=== PATIENT | female | born 2005 | race Caucasian/White ===

== ENCOUNTER → 2024-12-14 15:42 | Outpatient (CLI) | payer OTHER, SELFPAY ==
--- NOTE | 2024-12-14 15:50 | DI.RAD.S_ITS ---
PROCEDURE: XR KNEE LT 3V INDICATIONS: L knee pain TECHNIQUE: 3 views of the knee were acquired. COMPARISON: None. FINDINGS: Bones: No fractures or dislocations. No suspicious bony lesions. Soft tissues: Small joint effusion. No suspicious soft tissue calcifications. IMPRESSION: Small knee joint effusion without displaced fracture. Dictated by: Dax Ramon M.D. on 12/14/2024 at 16:47 Approved by: Dax Ramon M.D. on 12/14/2024 at 16:47
== END ==
LOC: RAD 15:50
PROVIDERS: Referring Provider Physician Assistant Medical; Visit Provider Physician Assistant Medical
DX: M25.562 Pain in left knee (principal); M25.462 Effusion, left knee
CPT/HCPCS: 73562